=== PATIENT | male | born 2000 | race African-American/Black ===

== ENCOUNTER 2020-10-08 17:53 | Emergency (ER) | payer MEDICAID ==
[~2020-10-08] VITALS: Ht 177.8 cm; Wt 56.7 kg
--- NOTE | 2020-10-08 20:10 | NUR ---
ice pack provided to pt
--- NOTE | 2020-10-08 20:33 | NUR ---
REPORT RECEIVED FROM MATEO DURAN
--- NOTE | 2020-10-08 21:10 | NUR ---
REPORT TO MATEO DURAN
[2020-10-08] MEDS ORDERED: OXYcodone/APAP 5/325MG TABLET ONE (21:38)
[2020-10-08] MEDS ORDERED: OXYcodone/APAP 5/325MG TABLET PO ONE (22:00)
[2020-10-08 23:27] VITALS: BP 122/70
--- NOTE | 2020-10-08 23:28 | NUR ---
Patient given discharge instructions and they have confirmed that they understand the instructions. Patient ambulatory with steady gait. NAD, all questions answered appropriately, denies additional needs at this time. No personal belongings left in room after discharge.
== END 2020-10-08 23:34 | disposition home or self-care (01) ==
LOC: ED 21:07
DX: S62.325A Displaced fracture of shaft of fourth metacarpal bone, left hand, initial encounter for closed fracture (principal); W22.8XXA Striking against or struck by other objects, initial encounter; Y93.89 Activity, other specified; Y92.89 Other specified places as the place of occurrence of the external cause; Y99.8 Other external cause status
CPT/HCPCS: 29125; 99283

== ENCOUNTER 2020-11-15 17:00 | Emergency (ER) | payer MEDICAID ==
--- NOTE | 2020-11-15 17:36 | NUR ---
NO ANSWER FROM LOBBY X1
--- NOTE | 2020-11-15 17:54 | NUR ---
NIL X 2 WHEN CALLED FOR TRIAGE.
--- NOTE | 2020-11-15 18:22 | NUR ---
NIL X 3 WHEN CALLED FOR TRIAGE.
== END 2020-11-15 18:23 | disposition left against medical advice (07) ==
LOC: ED 18:00
DX: M79.642 Pain in left hand (principal); Z53.21 Procedure and treatment not carried out due to patient leaving prior to being seen by health care provider

== ENCOUNTER 2020-11-16 10:13 | Emergency (ER) | payer MEDICAID ==
[~2020-11-16] VITALS: Ht 180.3 cm; Wt 73.6 kg
--- NOTE | 2020-11-16 12:11 | NUR ---
TRIAGE TECH: PT AMBULATORY TO TRIAGE ROOM FOR SECOND SET OF VITALS.
[2020-11-16 15:08] VITALS: BP 135/76
--- NOTE | 2020-11-16 16:11 | NUR ---
LEFT HAND "MY RING FINGER WAS ALREADY BROKE, SCHEDULED FOR SURGERY 12/03) NOW I BROKE MY PINKY FINGER TOO. +SWELLING +DEFORMITY. (-VACCINATION) DISTAL CMS INTACT ERP-PA TO BEDSIDE- REVIEWED POC-TO BE DISCHARGED WITH ORTHO F/U
[2020-11-16] MEDS ORDERED: HYDROcodone/APAP 5/325 TABLET PO ONE (16:30)
[2020-11-16] MEDS ORDERED: HYDROcodone/APAP 5/325 TABLET ONE (16:32)
== END 2020-11-16 16:40 | disposition home or self-care (01) ==
LOC: ED 10:38
DX: S62.325A Displaced fracture of shaft of fourth metacarpal bone, left hand, initial encounter for closed fracture (principal); X58.XXXA Exposure to other specified factors, initial encounter; Y93.89 Activity, other specified; Y92.009 Unspecified place in unspecified non-institutional (private) residence as the place of occurrence of the external cause; Y99.8 Other external cause status
CPT/HCPCS: 99283

== ENCOUNTER 2020-12-05 16:49 | Emergency (ER) | payer MEDICAID ==
[~2020-12-05] VITALS: Ht 177.8 cm; Wt 56.6 kg
[2020-12-05 19:00] VITALS: BP 121/70
== END 2020-12-05 20:12 | disposition home or self-care (01) ==
LOC: ED 17:00
DX: S62.305A Unspecified fracture of fourth metacarpal bone, left hand, initial encounter for closed fracture (principal)
CPT/HCPCS: 29125; 99283

== ENCOUNTER 2020-12-28 12:55 | Emergency (ER) | payer MEDICAID ==
[~2020-12-28] VITALS: Ht 177.8 cm; Wt 55.3 kg
[2020-12-28 13:30] VITALS: BP 110/80
== END 2020-12-28 13:41 | disposition home or self-care (01) ==
LOC: ED 13:25
DX: S69.91XA Unspecified injury of right wrist, hand and finger(s), initial encounter (principal); X58.XXXA Exposure to other specified factors, initial encounter; Y93.89 Activity, other specified; Y92.89 Other specified places as the place of occurrence of the external cause; Y99.8 Other external cause status
CPT/HCPCS: 99281